=== PATIENT | female | born 1950 | race Caucasian/White ===

== ENCOUNTER 2020-07-16 07:57 | Day surgery (SDC) | payer MEDICARE ==
[2020-07-16] MEDS ORDERED: Sodium Chloride 0.9% 10 ML Syringe FLUSH PRN (08:30)
--- NOTE | 2020-07-16 11:00 | OR ---
DATE OF PROCEDURE: 07/16/2020 SURGEON: Sena Kowalski MD POSTOPERATIVE CARE: Postoperative care will be provided mainly at the [address] [place] [address] [facility] in conjunction with [facility]. PREOPERATIVE DIAGNOSIS: Cataract, right eye. POSTOPERATIVE DIAGNOSIS: Cataract, right eye. PROCEDURE: Phacoemulsification with intraocular lens placement, right eye. ANESTHESIA: Topical and intracameral. ESTIMATED BLOOD LOSS: Minimal. COMPLICATIONS: None. PATHOLOGY SPECIMENS: None. SURGICAL FINDINGS: None. INDICATION FOR PROCEDURE: The patient is a 70-year-old female with history of a visually significant cataract in the right eye, which interfered with activities of daily living. This consisted of a nuclear sclerosis cataract. Following careful discussion of the risks, benefits and alternatives to cataract extraction with intraocular lens placement including blindness and , the patient elected to proceed, and informed, written consent was obtained prior to the procedure. DESCRIPTION OF THE PROCEDURE: The patient was previously identified, and a matilde placed above the right eye. All sources, including the patient, indicated that the right eye was the correct eye. The patient was subsequently taken to the operating room where standard monitors were applied. The patient was then prepped and draped in the usual sterile fashion for ophthalmic surgery. Attention was first directed at the 12 o'clock position where a paracentesis port was fashioned. Shugar solution followed by Viscoat was instilled into the eye. Attention was then directed to the 8:30 position where a triplanar incision was made in a near-clear manner using a keratome. A continuous capsulorrhexis was then made using a combination of the cystotome and Utrata forceps. Hydrodissection was achieved using a balanced salt solution, and the lens rotated nicely. Phacoemulsification was then done using a modified [id number] technique without complication. Phaco time was 6.88 CDE. The remaining cortex was removed using the irrigation/aspiration handpiece. Provisc was then instilled into the eye. A Technis lens, model PCB00, at 19.0 diopters was then placed in the capsular bag using an [place] injector. The remaining viscoelastic was removed using the irrigation/aspiration forceps. All wounds were then checked and found to be watertight. The lid speculum and drapes were removed. Maxitrol ointment was placed in the patient's right eye, and the eye was shielded. The patient tolerated the procedure well. The patient was instructed to follow up tomorrow. All needle and sponge counts were correct at the end of the procedure. Sena Kowalski MD /[id number]
== END 2020-07-16 10:14 | disposition home or self-care (01) ==
LOC: JP.SDS 07:57
PROVIDERS: ATTEND Ophthalmology
DX: E11.36 Type 2 diabetes mellitus with diabetic cataract (principal); K21.9 Gastro-esophageal reflux disease without esophagitis; J45.909 Unspecified asthma, uncomplicated
CPT/HCPCS: V2632

== ENCOUNTER 2020-07-30 07:28 | Day surgery (SDC) | payer MEDICARE ==
[2020-07-30] MEDS ORDERED: Sodium Chloride 0.9% 10 ML Syringe FLUSH PRN (08:00)
--- NOTE | 2020-07-30 10:51 | OR ---
DATE OF PROCEDURE: 07/30/2020 SURGEON: Sena Kowalski MD POSTOPERATIVE CARE: Postoperative care will be provided mainly at the [address] [place] [address] [facility] in conjunction with [facility]. PREOPERATIVE DIAGNOSIS: Cataract, left eye. POSTOPERATIVE DIAGNOSIS: Cataract, left eye. PROCEDURE: Phacoemulsification with intraocular lens placement, left eye. ANESTHESIA: Topical and intracameral. ESTIMATED BLOOD LOSS: Minimal. COMPLICATIONS: None. PATHOLOGY SPECIMENS: None. SURGICAL FINDINGS: None. INDICATION FOR PROCEDURE: The patient is a 70-year-old female with history of a visually significant cataract in the left eye, which interfered with activities of daily living. This consisted of a nuclear sclerosis cataract. Following careful discussion of the risks, benefits and alternatives to cataract extraction with intraocular lens placement including blindness and , the patient elected to proceed, and informed, written consent was obtained prior to the procedure. DESCRIPTION OF THE PROCEDURE: The patient was previously identified, and a matilde placed above the left eye. All sources, including the patient, indicated that the left eye was the correct eye. The patient was subsequently taken to the operating room where standard monitors were applied. The patient was then prepped and draped in the usual sterile fashion for ophthalmic surgery. Attention was first directed at the 12 o'clock position where a paracentesis port was fashioned. Shugar solution followed by Viscoat was instilled into the eye. Attention was then directed to the 8:30 position where a triplanar incision was made in a near-clear manner using a keratome. A continuous capsulorrhexis was then made using a combination of the cystotome and Utrata forceps. Hydrodissection was achieved using a balanced salt solution, and the lens rotated nicely. Phacoemulsification was then done using a modified [id number] technique without complication. Phaco time was 6.41 CDE. The remaining cortex was removed using the irrigation/aspiration handpiece. Provisc was then instilled into the eye. A Technis lens, model PCB00, at 18.0 diopters was then placed in the capsular bag using an [place] injector. The remaining viscoelastic was removed using the irrigation/aspiration forceps. All wounds were then checked and found to be watertight. The lid speculum and drapes were removed. Maxitrol ointment was placed in the patient's left eye, and the eye was shielded. The patient tolerated the procedure well. The patient was instructed to follow up tomorrow. All needle and sponge counts were correct at the end of the procedure. Sena Kowalski MD /[id number]
== END 2020-07-30 09:27 | disposition home or self-care (01) ==
LOC: JP.SDS 07:28
PROVIDERS: ATTEND Ophthalmology
DX: E11.36 Type 2 diabetes mellitus with diabetic cataract (principal); J45.909 Unspecified asthma, uncomplicated; G47.33 Obstructive sleep apnea (adult) (pediatric); K21.9 Gastro-esophageal reflux disease without esophagitis; E03.9 Hypothyroidism, unspecified; Z88.2 Allergy status to sulfonamides
CPT/HCPCS: 66984; V2632

== ENCOUNTER 2022-02-13 10:30 | Emergency (ER) | payer MEDICARE ==
[2022-02-13] MEDS ORDERED: Sodium Chloride 0.9% 10 ML Syringe FLUSH PRN (10:41)
[2022-02-13] MEDS ORDERED: Ondansetron 4 MG/2 ML SDV IVPUSH ONE (10:57)
[2022-02-13 11:03] LABS: TROPONIN I HIGH SENSITIVITY 6.2 pg/mL (<=60.3)
[2022-02-13] MEDS ORDERED: Iopamidol 755 Mg/ML 100 ML Bottle IV SCH (12:00)
[2022-02-13] MEDS ORDERED: Sodium Chloride 0.9% 75 ML IV SCH (12:00)
== END 2022-02-13 14:01 | disposition home or self-care (01) ==
LOC: JP.ED 10:30
DX: G45.9 Transient cerebral ischemic attack, unspecified (principal); E11.9 Type 2 diabetes mellitus without complications; I10 Essential (primary) hypertension; E78.5 Hyperlipidemia, unspecified; E78.00 Pure hypercholesterolemia, unspecified; K21.9 Gastro-esophageal reflux disease without esophagitis; E66.9 Obesity, unspecified; Z68.32 Body mass index [BMI] 32.0-32.9, adult; Z88.2 Allergy status to sulfonamides; Z79.899 Other long term (current) drug therapy; Z20.822 Contact with and (suspected) exposure to COVID-19
CPT/HCPCS: 36415; 70450; 70496; 70498; 80053; 81001; 82947; 84484; 85025; 85610; 85730; 93005; 93010; 93225; 93226; 96374; 99285; 99285-25; J2405; J3490; Q9967; U0002

== ENCOUNTER 2022-02-14 07:40 | Observation (INO) | payer MEDICARE ==
[2022-02-14] MEDS ORDERED: LORazepam 2 MG/ML SDV IVPUSH ONE (08:25)
[2022-02-14] MEDS ORDERED: Ondansetron 4 MG/2 ML SDV IVPUSH ONE (09:49)
[2022-02-14] MEDS ORDERED: Aspirin 81 MG Tab.Chew PO ONE (11:32)
[2022-02-14] MEDS ORDERED: Clopidogrel 75 MG Tab PO ONE (11:33)
[2022-02-14] MEDS ORDERED: Glucose Gel 15 GM in 37.5 GM Tube PO PRN (14:26)
[2022-02-14] MEDS ORDERED: Sodium Chloride 0.9% 10 ML Syringe FLUSH PRN (14:26)
[2022-02-14] MEDS ORDERED: Albuterol 0.083% 2.5 MG/3 ML Neb Soln NEB PRN (14:26)
[2022-02-14] MEDS ORDERED: Ondansetron 4 MG/2 ML SDV IV PRN (14:26)
[2022-02-14] MEDS ORDERED: 50% Dextrose in Water 50 ML Syringe IV PRN (14:26)
[2022-02-14] MEDS: Enoxaparin 40 MG/0.4 ML Syringe SUBCUT SCH (15:50)
[2022-02-14] MEDS: Insulin Lispro 100 Unit/ML 3 ML KwikPen SUBCUT SCH ×2 (17:43→21:22)
[2022-02-14] MEDS ORDERED: Non-Formulary Medication 1 Each (Omeprazole [Omeprazole] 20 MG) PO SCH (17:52)
[2022-02-14] MEDS: Non-Formulary Medication 1 Each (Omeprazole [Omeprazole] 20 MG) PO SCH (18:01)
[2022-02-14] MEDS: Acetaminophen 325 MG Tab PO PRN (18:22)
[2022-02-14] MEDS: MONTELUKAST 10 MG PO SCH (21:23)
[2022-02-14] MEDS: ADVAIR INH SCH (22:00)
[2022-02-14] MEDS: ZYRTEC D PO SCH (22:56)
[2022-02-15] MEDS: LEVOTHYROXINE 112 MCG PO SCH (07:29)
[2022-02-15] MEDS: METFORMIN 500 MG PO SCH (07:29)
[2022-02-15] MEDS ORDERED: OMEPRAZOLE 20 MG PO SCH (07:30)
[2022-02-15] MEDS: Insulin Lispro 100 Unit/ML 3 ML KwikPen SUBCUT SCH ×4 (07:37→21:33)
[2022-02-15] MEDS: ADVAIR INH SCH ×2 (08:36→20:45)
[2022-02-15] MEDS: Aspirin 325 MG Tab.EC PO SCH (08:54)
[2022-02-15] MEDS: ROSUVASTATIN 10 MG PO SCH (08:54)
[2022-02-15] MEDS: Clopidogrel 75 MG Tab PO SCH (08:55)
[2022-02-15] MEDS ORDERED: Non-Formulary Medication 1 Each (Fluticasone Propion/Salmeterol [Advair Hfa 230-21 Mcg Inh INH SCH (09:00)
[2022-02-15] MEDS: Enoxaparin 40 MG/0.4 ML Syringe SUBCUT SCH (15:33)
[2022-02-15] MEDS: Non-Formulary Medication 1 Each (Omeprazole [Omeprazole] 20 MG) PO SCH (16:55)
[2022-02-15] MEDS ORDERED: Non-Formulary Medication 1 Each (Omeprazole [Omeprazole] 20 MG) PO SCH (17:00)
[2022-02-15] MEDS: ZYRTEC D PO SCH (20:46)
[2022-02-15] MEDS: MONTELUKAST 10 MG PO SCH (20:46)
[2022-02-15] MEDS: Acetaminophen 325 MG Tab PO PRN (20:52)
[2022-02-16] MEDS: LEVOTHYROXINE 112 MCG PO SCH (07:29)
[2022-02-16] MEDS: METFORMIN 500 MG PO SCH (07:30)
[2022-02-16] MEDS: Insulin Lispro 100 Unit/ML 3 ML KwikPen SUBCUT SCH ×2 (07:32→11:53)
[2022-02-16] MEDS: Aspirin 325 MG Tab.EC PO SCH (08:22)
[2022-02-16] MEDS: ROSUVASTATIN 10 MG PO SCH (08:22)
[2022-02-16] MEDS: Clopidogrel 75 MG Tab PO SCH (08:22)
[2022-02-16] MEDS: ADVAIR INH SCH (08:30)
[2022-02-16] MEDS ORDERED: Fluticasone NASAL Spray 16 GM Bottle NASBOTH SCH (09:00)
[2022-02-20] MEDS ORDERED: ALENDRONATE 35 MG PO SCH (07:00)
== END 2022-02-16 13:15 | disposition home health service (06) ==
LOC: JP.ED 07:40 → JP.ICU 11:58
PROVIDERS: ADMIT Hospitalist; ATTEND Hospitalist
DX: I63.81 Other cerebral infarction due to occlusion or stenosis of small artery (principal); E78.00 Pure hypercholesterolemia, unspecified; E66.9 Obesity, unspecified; E11.9 Type 2 diabetes mellitus without complications; Z88.2 Allergy status to sulfonamides; Z79.899 Other long term (current) drug therapy; Z79.82 Long term (current) use of aspirin; Z98.890 Other specified postprocedural states; Z79.02 Long term (current) use of antithrombotics/antiplatelets
CPT/HCPCS: 36415; 70551; 71045; 80048; 82947; 94640; 96374; 96375; 97116; 97163; 97165; 97530; 97535; 99285; A9270; J1650; J1815; J2060; J2405; 84443